=== PATIENT | female | born 1960 | race Caucasian/White ===

== ENCOUNTER 2021-12-16 06:39 | Observation (INO) | payer OTHER ==
[~2021-12-16] VITALS: Ht 172.7 cm; Wt 90.3 kg
[~2021-12-16 06:39] MED LIST: AUGMENTIN 875-1 EACH PO; CALCIUM + D SO1 EACH PO; CIPRO500 MG PO; FLAGYL500 MG PO; IBUPROFEN600 MG PO; PROTONIX 40 MG40 M1 PO; ZOFRAN4 MG PO
[2021-12-16 07:09] LABS: HEMOGLOBIN 15.8 gm/dl (12.3-15.3); RED BLOOD COUNT 4.74 M/UL (4.00-5.10)
[2021-12-16 07:32] LABS: BUN/CREATININE RATIO 18 (0-10)
[2021-12-16] MEDS ORDERED: FIBER625 MG PO (12:56)
[2021-12-16] MEDS ORDERED: TUMS200 MG PO (12:59)
[2021-12-17 02:02] LABS: HEMOGLOBIN 14.8 gm/dl (12.3-15.3); RED BLOOD COUNT 4.52 M/UL (4.00-5.10); WHITE BLOOD COUNT 10.6 K/UL (4.5-11.0)
[2021-12-17 03:26] LABS: BUN/CREATININE RATIO 16 (0-10)
[2021-12-18 02:26] LABS: HEMOGLOBIN 15.2 gm/dl (12.3-15.3); RED BLOOD COUNT 4.61 M/UL (4.00-5.10); WHITE BLOOD COUNT 13.1 K/UL (4.5-11.0)
[2021-12-18 02:37] LABS: BUN/CREATININE RATIO 19 (0-10)
--- NOTE | 2021-12-18 09:04 | NUR ---
DR GUERRA HERE SEEING PT,HE EXPLAINED TO PT THE IMPORTANCE OG TAKING PLAVIX AND PT STATED THAT SHE DIDNT CARE WHAT HE SAID THAT SHE WASNT TAKING PLAVIX UNTIL SHE SEES HER REGULAR PHYSICIAN
[2021-12-18] MEDS ORDERED: ASPIRIN EC81 MG PO (09:30)
[2021-12-18] MEDS ORDERED: ATORVASTATIN CA20 MG PO (09:30)
[2021-12-18] MEDS ORDERED: CLOPIDOGREL75 MG PO (09:30)
[2021-12-18] MEDS ORDERED: FLONASE 0.05% N16 GM (09:30)
[2021-12-18] MEDS ORDERED: VITAMIN B-12100 MCG PO (09:43)
[2021-12-18 18:01] LABS: WHITE BLOOD COUNT 13.7 K/UL (4.5-11.0)
== END 2021-12-18 11:38 | disposition home or self-care (01) ==
LOC: ER1 06:39 → MED SURG 4 11:48 → CDU 11:48 → MED SURG 4 13:55
PROVIDERS: Physician Assistant; ADMIT Internal Medicine
DX: I63.232 Cerebral infarction due to unspecified occlusion or stenosis of left carotid arteries (principal); I63.22 Cerebral infarction due to unspecified occlusion or stenosis of basilar artery; I63.89 Other cerebral infarction; E78.5 Hyperlipidemia, unspecified; K02.9 Dental caries, unspecified; E53.8 Deficiency of other specified B group vitamins; F17.210 Nicotine dependence, cigarettes, uncomplicated; E03.9 Hypothyroidism, unspecified; K44.9 Diaphragmatic hernia without obstruction or gangrene; K57.90 Diverticulosis of intestine, part unspecified, without perforation or abscess without bleeding; Z88.0 Allergy status to penicillin; Z88.1 Allergy status to other antibiotic agents; Z88.2 Allergy status to sulfonamides; Z88.5 Allergy status to narcotic agent; Z88.8 Allergy status to other drugs, medicaments and biological substances; Z79.82 Long term (current) use of aspirin; Z79.02 Long term (current) use of antithrombotics/antiplatelets; Z79.899 Other long term (current) drug therapy
CPT/HCPCS: ECHO; 36415; 70450; 70496; 70498; 70551; 71045; 80048; 80053; 80061; 81001; 82550; 82553; 82607; 83036; 83735; 84100; 84439; 84443; 84484; 85025; 93306; 97161; 97165; 99285; G0378; Q9967